=== PATIENT | male | born 1965 | race American Indian/Alaskan Native ===

== ENCOUNTER 2016-10-31 08:23 | Observation (INO) | payer OTHER ==
[2016-10-31 08:36] VITALS: BMI 28.3
--- NOTE | 2016-10-31 08:54 | ED PDOC ---
Arrival/HPI - General Chief Complaint: Chest Pain Time Seen by Provider: 10/31/16 08:41 Historian: Patient - History of Present Illness Narrative History of Present Illness (Text): 10/31/16 08:42 A 50 year old male presents to the emergency department complaining of left sided sharp chest pain that started yesterday. No inside factor. Patient denies any fever, chill, shortness of breath, or any other complaints at this time. PMD: Dr. Mcadams Time/Duration: 24 hours Symptom Onset: Sudden Symptom Course: Unchanged Quality: Other Activities at Onset: Rest Context: Home Past Medical History - Provider Review Nursing Documentation Reviewed: Yes - Past History Past History: No Previous - Infectious Disease Hx of Infectious Diseases: None - Tetanus Immunization Tetanus Immunization: Unknown - Past Medical History Past Medical History: No Previous - Cardiac Hx Cardiac Disorders: No - Pulmonary Hx Respiratory Disorders: No - Neurological Hx Neurological Disorder: No - HEENT Hx HEENT Disorder: No - Renal Hx Renal Disorder: No - Endocrine/Metabolic Hx Endocrine Disorders: No - Hematological/Oncological Hx Blood Disorders: Yes Hx Shingles: Yes - Integumentary Hx Dermatological Disorder: No - Musculoskeletal/Rheumatological Hx Musculoskeletal Disorders: No - Gastrointestinal Hx Gastrointestinal Disorders: No Hx Constipation: Yes - Genitourinary/Gynecological Hx Genitourinary Disorders: No - Psychiatric Hx Psychophysiologic Disorder: Yes Hx Anxiety: Yes Hx Substance Use: No - Past Surgical History Past Surgical History: No Previous - Anesthesia Hx Anesthesia: No Hx Anesthesia Reactions: No Hx Malignant Hyperthermia: No - Suicidal Assessment Feels Threatened In Home Enviroment: No Family/Social History - Physician Review Nursing Documentation Reviewed: Yes Family/Social History: Unknown Family HX Smoking Status: Never Smoked Hx Alcohol Use: Yes Hx Substance Use: No Hx Substance Use Treatment: No Allergies/Home Meds Allergies/Adverse Reactions: Allergies No Known Allergies Allergy (Verified 09/14/15 14:48) Home Medications: Home Meds Medication Instructions Recorded Confirmed Bisacodyl [Ducolax] 2 tab PO DAILY 10/31/16 10/31/16 Review of Systems - Physician Review All systems were reviewed & negative as marked: Yes - Review of Systems Constitutional: absent: Fevers Respiratory: absent: SOB Cardiovascular: Chest Pain Physical Exam Vital Signs Reviewed: Yes Vital Signs Temp Pulse Resp BP Pulse Ox 10/31/16 08:25 98.6 F 58 L 20 145/82 100 Temperature: Afebrile Blood Pressure: Normal Pulse: Bradycardic Respiratory Rate: Normal Appearance: Positive for: Well-Appearing, Non-Toxic, Comfortable Pain Distress: None Mental Status: Positive for: Alert and Oriented X 3 - Systems Exam Head: Present: Atraumatic, Normocephalic Pupils: Present: PERRL Extroacular Muscles: Present: EOMI Conjunctiva: Present: Normal Mouth: Present: Moist Mucous Membranes Neck: Present: Normal Range of Motion Respiratory/Chest: Present: Clear to Auscultation, Good Air Exchange. No: Respiratory Distress, Accessory Muscle Use Cardiovascular: Present: Normal S1, S2, Bradycardic. No: Murmurs Abdomen: Present: Normal Bowel Sounds. No: Tenderness, Distention, Peritoneal Signs Back: Present: Normal Inspection Upper Extremity: Present: Normal Inspection. No: Cyanosis, Edema Lower Extremity: Present: Normal Inspection. No: Edema Neurological: Present: GCS=15, CN II-XII Intact, Speech Normal Skin: Present: Warm, Dry, Normal Color. No: Rashes Psychiatric: Present: Alert, Oriented x 3, Normal Insight, Normal Concentration Medical Decision Making ED Course and Treatment: 10/31/16 08:42 Impression: A 50 year old male with chest pain. Differential Diagnosis include but are not limited to:r/o acs Plan: -- EKG -- Chest X-ray -- Labs -- Urinalysis -- Reassess and disposition Prior Visits: Notes and results from previous visits were reviewed. The patient last presented to the emergency department on 09/14/15 for evaluation of cough and nasal congestion. Progress Notes: EKG: Ordered, reviewed, and independently interpreted the EKG. Rate : 56 BPM Rhythm : Sinus Bradycardia Interpretation : No ST-segment elevations or depressions, no T-wave inversions, normal intervals. 10/31/16 09:50 Chest X-ray: Creator : Colby Tee MD COMPARISON: 05/21/2015 FINDINGS: LUNGS: No active pulmonary disease. PLEURA: No significant pleural effusion identified, no pneumothorax apparent. CARDIOVASCULAR: Normal. OSSEOUS STRUCTURES: No significant abnormalities. VISUALIZED UPPER ABDOMEN: Normal. OTHER FINDINGS: None. IMPRESSION: No active disease. 10/31/16 10:[address] Byrd, who is aware and accepts the patient to his services. r/o acs. I have discussed the results and plan with the patient, who expresses understanding. Patient given the opportunity to ask question, all questions were answered and there is agreement with the plan to be admitted to the hospital. 10/31/16 11:22 - Lab Interpretations Lab Results: 10/31/16 09:15 10/31/16 09:15 Lab Results 10/31/16 09:15: Sodium 138, Potassium 3.7, Chloride 103, Carbon Dioxide 28, Anion Gap 11, BUN 17, Creatinine 1.0, Est GFR ( Amer) > 60, Est GFR (Non- Af Amer) > 60, Random Glucose 88, Calcium 9.6, Magnesium 1.9, Total Bilirubin 1.4 H, AST 32, ALT 20, Alkaline Phosphatase 64, Lactate Dehydrogenase 524, Total Creatine Kinase 292 H, CK-MB (CK-2) 1.4, CK-MB (CK-2) % Cancelled, Troponin I < 0.01, Total Protein 8.0, Albumin 4.1, Globulin 3.9, Albumin/ Globulin Ratio 1.1 10/31/16 09:15: PT 11.9 H, INR 1.10 H, APTT 31.5 H 10/31/16 09:15: WBC 5.4, RBC 5.07, Hgb 15.1, Hct 43.7, MCV 86.2, MCH 29.8, MCHC 34.6, RDW 13.8, Plt Count 163, MPV 10.9, Gran % 39.4 L, Lymph % (Auto) 47.2 H, [place] % (Auto) 7.4 H, Eos % (Auto) 5.6 H, Baso % (Auto) 0.4, Gran # 2.12, Lymph # 2.5, [place] # 0.4, Eos # 0.3, Baso # 0.02 I have reviewed the lab results: Yes - RAD Interpretation Radiology Orders: 10/31/16 08:48 CHEST PORTABLE [RAD] Stat - Medication Orders Current Medication Orders: Discontinued Medications Aspirin (Aspirin) 325 mg PO STAT STA Stop: 10/31/16 09:54 Last Admin: 10/31/16 10:06 Dose: 325 mg - Scribe Statement The provider has reviewed the documentation as recorded by the Sharla Maynard Provider Scribe Attestation: All medical record entries made by the Scribe were at my direction and personally dictated by me. I have reviewed the chart and agree that the record accurately reflects my personal performance of the history, physical exam, medical decision making, and the department course for this patient. I have also personally directed, reviewed, and agree with the discharge instructions and disposition. Disposition/Present on Arrival - Present on Arrival Any Indicators Present on Arrival: No History of DVT/PE: No History of Uncontrolled Diabetes: No Urinary Catheter: No History of Decub. Ulcer: No History Surgical Site Infection Following: None - Disposition Have Diagnosis and Disposition been Completed?: Yes Diagnosis: Chest pain Disposition: HOSPITALIZED Disposition Time: 10:07 Condition: STABLE
[2016-10-31 09:17] LABS: ADD MANUAL DIFF? NO
[2016-10-31 09:31] LABS: BASO # 0.02 K/mm3 (0.0-2.0); BASO % 0.4 % (0.0-3.0); EOS # 0.3 (0.0-0.7); EOS % 5.6 % (1.5-5.0); GRAN # 2.12 (1.4-6.5); GRAN % 39.4 % (50.0-68.0); HEMATOCRIT 43.7 % (42.0-52.0); LYMPH # 2.5 (1.2-3.4); LYMPH % 47.2 % (22.0-35.0); MEAN CELL VOLUME 86.2 fL (80.0-105.0); MEAN CORPUSCULAR HEMOGLOBIN 29.8 pg (25.0-35.0); MEAN CORPUSCULAR HGB CONC 34.6 g/dl (31.0-37.0); MEAN PLATELET VOLUME 10.9 fl (7.0-11.0); MONO # 0.4 (0.1-0.6); MONO % 7.4 % (1.0-6.0); PLATELET COUNT 163 10^3/uL (120.0-450.0); RED CELL DISTRIBUTION WIDTH 13.8 % (11.5-14.5); WHITE BLOOD COUNT 5.4 10^3/ul (4.5-11.0)
[2016-10-31 09:35] LABS: ALB/GLOB RATIO 1.1 (1.1-1.8); ALKALINE PHOSPHATASE 64 U/L (38-133); ALT/SGPT 20 U/L (7-56); AST/SGOT 32 U/L (15-59); BILIRUBIN,TOTAL 1.4 mg/dL (0.2-1.3); BLOOD UREA NITROGEN 17 mg/dL (7-21); CALCIUM 9.6 mg/dL (8.4-10.5); CARBON DIOXIDE 28 mmol/L (21-33); CHLORIDE 103 mmol/L (98-107); GFR AFRICAN-AMERICAN > 60; GLUCOSE,RANDOM 88 mg/dL (70-110); MAGNESIUM 1.9 mg/dL (1.7-2.2); SODIUM 138 mmol/L (132-148)
[2016-10-31 09:37] LABS: POTASSIUM 3.7 mmol/L (3.6-5.0)
[2016-10-31 09:41] LABS: INR 1.1 (0.93-1.08); PARTIAL THROMBOPLASTIN TIME 31.5 Seconds (23.7-30.8)
[2016-10-31 09:47] LABS: TROPONIN I < 0.01 ng/mL
--- NOTE | 2016-10-31 09:50 | RAD ---
HISTORY: cp COMPARISON: 05/21/2015 FINDINGS: LUNGS: No active pulmonary disease. PLEURA: No significant pleural effusion identified, no pneumothorax apparent. CARDIOVASCULAR: Normal. OSSEOUS STRUCTURES: No significant abnormalities. VISUALIZED UPPER ABDOMEN: Normal. OTHER FINDINGS: None. IMPRESSION: No active disease.
[2016-10-31] MEDS ORDERED: Pantoprazole 40 mg EC Tab PO SCH (12:15)
[2016-10-31] MEDS ORDERED: Aspirin 325 mg EC Tablets PO ONE (12:15)
[2016-10-31] MEDS: Enoxaparin 40 mg Syringe SC SCH (13:02)
[2016-10-31] MEDS: Nitroglycerin 2% Ointment Foilpak UD TOP SCH ×4 (13:02→23:56)
[2016-10-31] MEDS ORDERED: Pneumococcal 23-Valent Vaccine IM ONE (13:23)
[2016-10-31 14:25] LABS: CHOLESTEROL 177 mg/dL (130-200)
[2016-10-31 14:39] LABS: TROPONIN I < 0.01 ng/mL
[2016-10-31 14:47] LABS: FREE T4 0.99 ng/dL (0.78-2.19); T4 6.6 ug/dL (5.5-11.0)
[2016-10-31 15:00] LABS: THYROID STIMULATING HORMONE 1.48 mIU/mL (0.46-4.68)
[2016-10-31] MEDS ORDERED: Omega-3-Acid Ethyl Esters 1 GM Cap PO SCH (18:00)
[2016-10-31] MEDS ORDERED: Magnesium Hydroxide Susp 30 ml UD PO ONE (19:42)
[2016-10-31] MEDS ORDERED: Bisacodyl 5mg EC Tab PO ONE (19:43)
[2016-10-31 21:12] LABS: TROPONIN I < 0.01 ng/mL
[2016-11-01] MEDS: Nitroglycerin 2% Ointment Foilpak UD TOP SCH ×2 (05:21→12:26)
[2016-11-01 05:47] VITALS: RESP 18; O2SAT 98
[2016-11-01 07:16] LABS: CARDIO CRP(R) 0.4 mg/L
[2016-11-01] MEDS ORDERED: Sodium Chloride 0.9% 1,000 ML IV SCH (08:45)
[2016-11-01] MEDS ORDERED: Iohexol 240 (50 ml) ONE (08:58)
[2016-11-01] MEDS ORDERED: Iohexol 350 MG/100 ML VIAL ONE (08:59)
[2016-11-01 09:06] LABS: PH,URINE 6.5 (4.7-8.0); URINE BILIRUBIN NEGATIVE (NEGATIVE); URINE BLOOD TRACE-INTACT (NEGATIVE); URINE GLUCOSE (UA) NEGATIVE (NEGATIVE); URINE KETONE NEGATIVE (NEGATIVE); URINE LEUKOCYTE ESTERASE NEGATIVE Leu/uL (NEGATIVE); URINE PROTEIN NEGATIVE mg/dL (<30 mg/dL); URINE UROBILINOGEN 0.2 E.U./dL (<1 E.U./dL)
[2016-11-01 09:14] LABS: URINE APPEARANCE CLEAR (CLEAR); URINE COLOR YELLOW (YELLOW)
[2016-11-01 09:23] LABS: URINE BACTERIA FEW (NEG); URINE EPITHELIAL CELLS 0 - 2 /hpf (0-5); URINE RBC 0 - 2 /hpf (0-2); URINE WBC 0 - 2 /hpf (0-6)
--- NOTE | 2016-11-01 09:34 | HP ---
HISTORY OF PRESENT ILLNESS: The patient is a 50-year-old -[place] male who came to the [facility] ency Room complaining of retrosternal pain, pressure, tightness. Now radiating to the entire chest. The patient also complained of constipation and worsening of the symptoms upon lying down. REVIEW OF SYSTEMS: A 13-system review was done. Pertinent positives and negatives dictated above. The patient also complained of retrosternal and left-sided chest pain, pressure and burning in the est. Thirteen-system review was done. Pertinent positive and negative dictated above. CODE STATUS: Full code. LIVING WILL ADVANCED DIRECTIVE: None. Height is 6 feet. Weight is 209. ALLERGIES: None. HOME MEDICATIONS: Dulcolax tablets. SOCIAL HISTORY: The patient denies smoking, denies drug use, denies communicable transmissible disea se. Social alcohol use. 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 FAMILY HISTORY: Positive for hypertension. PAST MEDICAL HISTORY: Significant for hypertension and shingles. MEDICATIONS: On no medications. PHYSICAL EXAMINATION: VITAL SIGNS: T-max 98.6, heart rate 58, 72, 58, 61. Blood pressure initially 145/82, 148/90, 145/82 , respirations 20, O2 sat was 100%. GENERAL: The patient is seen lying in the stretcher. HEAD: Normocephalic, atraumatic. HEENT: Shows pink conjunctivae. Anicteric sclerae. Dry oral mucosa. NECK: No neck rigidity. No carotid bruit. CHEST: Symmetrical. LUNGS: Shows no rales, crackles, or wheezing. Questionable sternal and rib cage tenderness noted. Positive epigastric tenderness noted. Positive right upper quadrant tenderness noted. CARDIOVASCULAR: S1, S2, regular rhythm. ABDOMEN: Soft, positive bowel sounds. Positive epigastric right upper quadrant tenderness, No cost overtebral angle tenderness noted. No hepatosplenomegaly noted. GENITALIA: Male. RECTAL: Deferred. EXTREMITIES: Shows no pitting edema, no calf tenderness, no Homans' sign. NEUROLOGIC: The patient is alert, awake, oriented x 3. Cranial nerves II-XII intact. VASCULAR: Palpable pulses. PSYCHIATRIC: Negative. MUSCULOSKELETAL: Shows a body mass index of 28.3. DIAGNOSTICS: WBC 5.4, hemoglobin and hematocrit 15.1 and 43.7, platelets 163, lymphocytes are slight ly elevated at 47.2. PT, PTT 11.9, 31.5. D-dimer 0.19. Sodium 138, potassium 3.7, chloride 103, CO 2 28, anion gap 11, BUN 17, creatinine 1.0, GFR greater than 60, glucose 88, calcium 9.6, magnesium 1 .9, total bilirubin 1.4. CPK 292. Troponin is negative. C-reactive protein is 0.4. Cholesterol 17 7, LDL 116, triglyceride 110, HDL 46. TSH 1.4, T4 6.6. Urinalysis is pending. Chest x-ray was done in the Emergency Room which was negative for any active disease. The patient's EKG done in the [facility] Room was reviewed, shows sinus bradycardia with left ventricular hypertrophy pattern by voltage criteria. The patient was seen in the Emergency Room by ____. The patient was evaluated in the Emergency R oom. The patient was given aspirin. The patient was advised to be placed on observation as per the ER physician. IMPRESSION AND PLAN: 1. Chest pain and tightness and pressure, etiology undetermined. 2. History of hypertension. 3. Sinus bradycardia. 4. Hypertensive cardiovascular disease with left ventricular hypertrophy on the EKG. 5. Mild lymphocytosis, etiology undetermined. 6. Mildly elevated CPK. 7. Hypercholesterolemia with elevated LDL. 8. Family history of hypertension. PLAN: At this time, the patient is placed on telemetry observation. Serial cardiac enzymes have bee n ordered. Serial EKGs ordered. Cardiology consultation ordered. The patient was given aspirin. T he patient is started on aspirin 325 daily, Lipitor 40 daily, Lovenox 40 mg subQ daily, MiraLax 17 g twice a day for constipation, Nitro paste 1 inch q. 6 hours, Protonix 40 mg twice a day. The patient has been ordered repeat EKGs. Echo with Doppler ordered. Heart healthy diet ordered. Urinalysis o rdered. CRP ordered. At present, patient is awaiting for further diagnostic therapeutic interventio n and imaging and the patient is awaiting for cardiology evaluation for further therapeutic intervent ion. The patient was explained about the details of his medical condition, need for hospitalization, need for further diagnostic and therapeutic intervention, which he acknowledged and understood. All questions and concerns answered. Dictated and electronically signed, not read. Fantasma Byrd MD cc: [id number] TT: 11/01/2016 09:33:46 jn
[2016-11-01] MEDS: Pantoprazole 40 mg EC Tab PO SCH ×2 (09:52→16:56)
[2016-11-01] MEDS: POLYETHYLENE GLYCOL 3350 17 GM/Dose PACKET PO SCH ×2 (09:53→16:56)
[2016-11-01] MEDS: Enoxaparin 40 mg Syringe SC SCH (09:53)
[2016-11-01] MEDS ORDERED: Aspirin 325 mg EC Tablets PO SCH (10:00)
[2016-11-01 12:31] VITALS: BP 141/95; TEMP 97.5
--- NOTE | 2016-11-01 13:05 | CT ---
PROCEDURE: CT Abdomen and Pelvis with oral and IV contrast. HISTORY: CP/ABD.PAIN/ COMPARISON: CT abdomen and pelvis with IV contrast performed 06/24/15 TECHNIQUE: Contiguous axial images of the abdomen and pelvis. Oral and IV contrast was administered. Coronal and Sagittal reformats generated and reviewed. Contrast dose: 100 cc Omnipaque 350 Radiation dose: Total exam DLP = 1085.08 MGy-cm. This CT exam was performed using one or more of the following dose reduction techniques: Automated exposure control, adjustment of the mA and/or kV according to patient size, and/or use of iterative reconstruction technique. FINDINGS: Chest: The thyroid gland appears unremarkable. The mediastinal and hilar vascular structures appear grossly unremarkable. Heart size appears within normal limits. No focal consolidation. No pleural effusion. No pneumothorax. No suspicious pulmonary nodule measuring greater than 5 mm identified. Small hiatal hernia. LIVER: Hypoattenuation of the liver compatible with hepatic steatosis. GALLBLADDER AND BILE DUCTS: Unremarkable. PANCREAS: Unremarkable. SPLEEN: Unremarkable. ADRENALS: Unremarkable. KIDNEYS AND URETERS: The kidneys enhance symmetrically. 3 mm right renal calculus. Mild fullness of the right renal pelvis and proximal ureter without obstructing calculus evident. 4 mm too small to characterize right renal hypodensity, statistically likely a cyst. The left kidney appears unremarkable. BLADDER: The urinary bladder appears unremarkable. REPRODUCTIVE: The prostate gland measures approximately 5.8 x 6.2 cm. APPENDIX: The appendix is not identified. No secondary signs of acute appendicitis are seen. BOWEL: The stomach is nondistended. The bowel loops appear within normal limits of caliber without evidence of intestinal obstruction. PERITONEUM: No significant free fluid. No definite free air. LYMPH NODES: No bulky lymphadenopathy identified. VASCULATURE: No aortic aneurysm. BONES: Degenerative changes. Osseous demineralization. 5 mm sclerotic lesion, left ilium. OTHER FINDINGS: Mild subcutaneous induration, right lateral upper abdomen. IMPRESSION: Mild subcutaneous induration, right lateral upper abdomen, nonspecific. Hypoattenuation of the liver compatible with hepatic steatosis. Too small to characterize right renal hypodensity ; statistically likely a cyst. 3 mm right renal calculus. Mild fullness of the right renal pelvis and proximal ureter without obstructing calculus evident. Enlarged heterogeneous prostate gland. Recommend correlation with PSA. Additional incidental findings as above.
--- NOTE | 2016-11-01 15:53 | CARD ---
APPROVED REPORT EKG Measurement Heart [id number] MD [id number] <Conclusion> Normal sinus rhythm Normal ECG
--- NOTE | 2016-11-01 16:12 | CARD ---
APPROVED REPORT EKG Measurement Heart [id number] <Conclusion> Sinus bradycardia Otherwise normal ECG
[2016-11-01 16:16] VITALS: PULSE 67
--- NOTE | 2016-11-01 19:16 | CON ---
DATE: 11/01/2016 REASON FOR CONSULTATION: Chest pain. HISTORY OF PRESENT ILLNESS: The patient is a 50-year-old -[place] male who has no significan t past medical history except for undergoing colonoscopy and polypectomy some 2 years ago at [facility]. 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 Doing his job, he started to experienc e retrosternal chest tightness associated with weakness. The patient denies any associated diaphores is or shortness of breath and is unaware of any prior cardiac history. The only significant family h yajaira is his mom in her 60s where she did have coronary artery disease. The patient is currently ch est pain free and denies any shortness of breath at this time. SOCIAL HISTORY: Nonsmoker, nondrinker. 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 MEDICATIONS: Aspirin 325 mg once a day, Lipitor 40 mg once a day, Lovenox 40 mg subcutaneous once a day, Protonix 40 mg p.o. twice a day, normal saline 100 mL an hour. REVIEW OF SYSTEMS: No nausea or vomiting. No fever or chills. No dizziness or syncope. PHYSICAL EXAMINATION: GENERAL: The patient is a middle-aged male who does not appear to be in any distress. VITAL SIGNS: Blood pressure 141/95, heart rate 62, temperature 97.5, respirations 18. HEENT: Normocephalic. NECK: No JVD. CHEST: Clear. HEART: S1, S2 regular. ABDOMEN: Soft. EXTREMITIES: No edema, no calf tenderness. LABORATORY DATA: CBC of 5.4, hemoglobin 15.1, hematocrit 43.7, platelet count 163,000. SMA-7: [place] um 138, potassium 3.7, chloride 103, CO2 of , glucose 88, BUN 17, creatinine 1.0. Three sets of troponins are negative. Lipid profile is within normal limits. TSH level is 1.43. INR is 1.1, PTT 31.5. The INR is within normal limits. EKG revealed normal sinus rhythm. ASSESSMENT: 1. Chest pain, myocardial infarction is ruled out. 2. Hypertension. 3. History of colonic polyps removed 2 years ago. RECOMMENDATIONS: Continue aspirin 325 mg once a day, Lipitor at 40 mg once a day, Lovenox at 40 mg o nce a day. Start Lopressor 25 mg twice a day. I will review the echocardiographic study performed t priscilla. Jose Presley MD cc: [id number] TT: 11/01/2016 19:16:06 Confirmation # [id number] Dictation # [id number] mn
--- NOTE | 2016-11-01 19:48 | DS ---
The patient is seen in room 269, bed 2. The patient stated that his complaints of chest pain, pressu re has lessened, but patient has been refusing the nitro paste which has been ordered. Overnight gopal 's notes were reviewed. The patient had complained of constipation for which patient was given Dul colax and milk of magnesia with positive results. PHYSICAL EXAMINATION: VITAL SIGNS: T-max 98.3. Telemetry shows sinus rhythm, heart rate 62, 73, 78. Blood pressure 104/5 1 110/69, 141/95, 145/82, 148/90, 45/82, yesterday, respiration 18, O2 sat 98%. HEAD: Normocephalic, atraumatic. HEENT: Shows pink conjunctivae, anicteric sclerae. No oropharyngeal lesion. NECK: No neck rigidity. CHEST: Symmetrical. LUNGS: Shows no rales, crackles, or wheezing. CARDIOVASCULAR: S1, S2, regular rhythm. ABDOMEN: Soft. Mild epigastric, right upper quadrant tenderness. GENITALIA: Male. RECTAL: Deferred. EXTREMITIES: Shows no pitting edema, no calf tenderness, no Homans' sign. NEUROLOGIC: The patient is alert, awake, oriented x 3. Cranial nerves II-XII intact. GAIT: Independent. VASCULAR: Palpable pulses. Plantars are downward. DTRs are 2+. MUSCULOSKELETAL: Shows a body mass index of 28. VASCULAR: Palpable pulses. DIAGNOSTICS: ESR is 6. Troponin all 3 sets are negative. CPK is down to 229 from 292. C-reactive protein is negative. Thyroid panel was negative. Cholesterol is elevated at 177, LDL 116. The sangita ent was ordered a CT of the chest, abdomen and pelvis for his complaints of chest pain and abdominal pain and constipation, with IV and p.o. contrast, which CAT scan of the chest, abdomen and pelvis adria ws small hiatal hernia, hepatic steatosis, 3 mm right renal calculus with fullness of the right renal pelvis and proximal ureter without obstructing calculus, and right renal cyst. Degenerative joint d isease of the spine noted. Hepatic steatosis noted, right renal cyst noted, prostatomegaly noted on the CAT scan. Echocardiogram was done, report pending. EKG shows sinus rhythm, sinus bradycardia. From today and yesterday, both EKGs were reviewed. All 3 sets of cardiac enzymes and troponin negative. FINAL IMPRESSION, PLAN, AND DISCHARGE DIAGNOSES: 1. Chest pain, tightness and pressure, atypical versus musculoskeletal. 2. Most likely gastroesophageal reflux. 3. Hypertension. 4. Sinus bradycardia. 5. Hypertensive cardiovascular disease with left ventricular hypertrophy. 6. Mild lymphocytosis, etiology undetermined. 7. Hypercholesterolemia with elevated LDL. 8. Mildly elevated CPK. 9. History of shingles. 10. Hypercholesterolemia and elevated LDL. 11. Sinus bradycardia. 12. Small hiatal hernia. 13. Hepatic steatosis with hypoattenuation of the liver. 14. A 3 mm right renal nonobstructing calculus with mild fullness of the right renal pelvis and prox imal ureter. 15. Right renal cyst. 16. Prostatomegaly. 17. Degenerative joint disease. 18. Prostatomegaly. PLAN: At this time, patient has been ordered a PSA, which is pending. Echo was done, but the result s are pending. The patient's current medications, the patient is on aspirin 325 daily, Lipitor 40 da marty. The patient is started on Lovenox 40 subQ daily, MiraLax 17 g twice a day, nitro paste 1 inch q .6, Protonix 40 twice a day, IV fluid 0.9 at 100 mL an hour. The patient at present has been medical ly cleared. The patient will be cleared for discharge if patient is cleared by cardiology for discha rge. The patient has been explained about the details of his medical condition. If patient is clear ed for discharge by cardiology, the patient will be discharged on aspirin 81 mg p.o. daily, Lipitor 40 mg daily. The patient is started on Edarbi 40 mg daily, Dulcolax tablet 5 mg tablet daily for con stipation, Protonix 40 mg twice a day, MiraLax 17 g twice a day. In addition, the patient will be di scharged home if cleared by cardiology. The patient has also been advised to schedule outpatient str ess test. Also, follow up patient with gastroenterology for EGD and colonoscopy if stress test negat perla. The patient was explained about all the details and all test results and all diagnostics at [facility], which he acknowledged and understands. The patient was extensively explained about the details of his condition, diagnosis, test results, etc. The patient was also advised to follow up in the off ice within 1 week for scheduling further appointments with cardiology for further cardiology evaluati on, stress testing and GI evaluation after patient cleared by cardiology. The patient completely und erstands and acknowledges his situation, diagnosis, test results. Discharge medications and discharge followup extensively explained to the patient at length and all q uestions and concerns answered. Time spent in the entire discharge process more than 45 minutes. Fantasma Byrd MD cc: [id number] TT: 11/01/2016 19:47:55 ln
--- NOTE | 2016-11-03 22:47 | CARD ---
APPROVED REPORT EXAM: Two-dimensional and M-mode echocardiogram with Doppler and color Doppler. INDICATION Hypertension/HCVD Chest Pain 2D DIMENSIONS Left Atrium (2D)3.4 (1.6-4.0cm)IVSd1.5 (0.7-1.1cm) Aortic Root (2D)3.9 (2.0-3.7cm)LVDd4.1 (3.9-5.9cm) PWd1.2 (0.7-1.1cm)LVDs2.2 (2.5-4.0cm) FS (%) 46.8 %LVEF (%)78.7 (>50%) M-Mode DIMENSIONS Aortic Cusp Exc.2.60 (1.5-2.0cm) Aortic Valve AoV Peak Rtwzviad580.0cm/Latanya Peak GR.5mmHg Mitral Valve MV E Abmiblxy48.2cm/sMV A Vihaebpn50.0cm/sE/A ratio1.2 TDI Lateral E' Peak V9.16cm/sMedial E' Peak V8.38cm/sE/Lateral E'8.8 E/Medial E'9.6 Pulmonary Valve PV Peak Ophhwulw96.3cm/sPV Peak Grad.2mmHg Tricuspid Valve TR Peak Zdxehyew567qn/sRAP [id number] Peak Gr.12mmHg [id number] LEFT VENTRICLE The left ventricle is normal size. There is mild concentric left ventricular hypertrophy. The left ventricular function is normal. The left ventricular ejection fraction is within the normal range. There is normal LV segmental wall motion. The left ventricular diastolic function is normal. RIGHT VENTRICLE The right ventricle is normal size. There is normal right ventricular wall thickness. The right ventricular systolic function is normal. ATRIA The left atrium size is normal. The right atrium size is normal. AORTIC VALVE The aortic valve is normal in structure. No aortic regurgitation is present. There is no aortic valvular stenosis. MITRAL VALVE The mitral valve is normal in structure. There is no mitral valve regurgitation noted. TRICUSPID VALVE The tricuspid valve is normal in structure. There is no pulmonary hypertension. PULMONIC VALVE The pulmonary valve is normal in structure. There is no pulmonic valvular regurgitation. GREAT VESSELS The aortic root is mildly enlarged. The IVC is normal in size and collapses >50% with inspiration. PERICARDIAL EFFUSION There is no pericardial effusion. <Conclusion> The left ventricle is normal size. There is mild concentric left ventricular hypertrophy. The left ventricular function is normal. The left ventricular ejection fraction is within the normal range. There is normal LV segmental wall motion. The left ventricular diastolic function is normal. The aortic root is mildly enlarged.
== END 2016-11-01 18:16 | disposition home or self-care (01) ==
LOC: ED 08:23 → ERH 10:06 → 2RNO 12:30
PROVIDERS: ADMIT Internal Medicine; ATTEND Internal Medicine
DX: D72.820 Lymphocytosis (symptomatic) (principal); E78.00 Pure hypercholesterolemia, unspecified; I11.9 Hypertensive heart disease without heart failure; K59.00 Constipation, unspecified; I25.10 Atherosclerotic heart disease of native coronary artery without angina pectoris; K21.9 Gastro-esophageal reflux disease without esophagitis; K44.9 Diaphragmatic hernia without obstruction or gangrene; K76.0 Fatty (change of) liver, not elsewhere classified; M19.90 Unspecified osteoarthritis, unspecified site; N28.1 Cyst of kidney, acquired; N40.0 Benign prostatic hyperplasia without lower urinary tract symptoms; Z82.49 Family history of ischemic heart disease and other diseases of the circulatory system; Z86.010 Personal history of colon polyps; Z86.19 Personal history of other infectious and parasitic diseases; F41.9 Anxiety disorder, unspecified; R00.1 Bradycardia, unspecified; R40.2412 Glasgow coma scale score 13-15, at arrival to emergency department
CPT/HCPCS: 71010; 71260; 74177; 80053; 80061; 81001; 82550; 82553; 83615; 83735; 84439; 84443; 84484; 85025; 85378; 85610; 85651; 85730; 86141; 93005; 93306; 96372; 99285; G0378; J1650; J7040; Q9966; Q9967

== ENCOUNTER 2017-02-16 09:10 | Emergency (ER) | payer OTHER ==
[2017-02-16 09:22] VITALS: RESP 18; TEMP 98.3; BMI 31.1
[2017-02-16] MEDS ORDERED: Sodium Chloride 0.9% 1,000 ML IV STA (09:40)
[2017-02-16 10:05] LABS: BASO # 0.01 K/mm3 (0.0-2.0); BASO % 0.2 % (0.0-3.0); EOS # 0.2 (0.0-0.7); EOS % 4.1 % (1.5-5.0); GRAN # 2.19 (1.4-6.5); GRAN % 38.8 % (50.0-68.0); LYMPH # 2.8 (1.2-3.4); LYMPH % 49.5 % (22.0-35.0); MEAN CELL VOLUME 84.6 fl (80.0-105.0); MEAN CORPUSCULAR HEMOGLOBIN 29.5 pg (25.0-35.0); MEAN CORPUSCULAR HGB CONC 34.9 g/dl (31.0-37.0); MEAN PLATELET VOLUME 9.6 fl (7.0-11.0); MONO # 0.4 (0.1-0.6); MONO % 7.4 % (1.0-6.0); RED CELL DISTRIBUTION WIDTH 13.6 % (11.5-14.5); WHITE BLOOD COUNT 5.6 10^3/ul (4.5-11.0)
--- NOTE | 2017-02-16 10:16 | ED PDOC ---
Arrival/HPI - General Historian: Patient - History of Present Illness Time/Duration: Other (3 days) Quality: Burning, Throbbing Severity Level: Severe - General Chief Complaint: GI Problem Time Seen by Provider: 02/16/17 09:20 - History of Present Illness Narrative History of Present Illness (Text): 02/16/17 10:13 51-year-old male presents today with severe rectal pain that is worsened over the past 3 days. Patient states had a colonoscopy over a year ago and ever since then he has been having constipation. Patient states he's been using Dulcolax with minimal relief of his constipation. Patient states his last bowel movement was today. Patient states the stool was hard. He denies bleeding. Patient complaining of burning and sharp throbbing pain to the rectum and anus that has worsened over the past 3 days. He is complaining of minimal lower abdominal pain. He denies chest pain or shortness of breath. No medications by mouth have been taken for pain at home. Patient states he applied Preparation H without improvement of his symptoms. (Chanda Wilson) Past Medical History - Provider Review Nursing Documentation Reviewed: Yes - Travel History Have you recently traveled outside [place] w/in the past 3 mons?: No - Past History Past History: No Previous - Infectious Disease Hx of Infectious Diseases: None - Tetanus Immunization Tetanus Immunization: Unknown - Reproductive Currently : No - Past Medical History Past Medical History: No Previous - Cardiac Hx Cardiac Disorders: No - Pulmonary Hx Respiratory Disorders: No - Neurological Hx Neurological Disorder: No - HEENT Hx HEENT Disorder: Yes (glasses) - Renal Hx Renal Disorder: No - Endocrine/Metabolic Hx Endocrine Disorders: No - Hematological/Oncological Hx Blood Disorders: Yes Hx Shingles: Yes (left back "few yrs ago") - Integumentary Hx Dermatological Disorder: No - Musculoskeletal/Rheumatological Hx Falls: No - Gastrointestinal Hx Gastrointestinal Disorders: Yes (constipation take dulcolax) - Genitourinary/Gynecological Hx Genitourinary Disorders: No - Psychiatric Hx Psychophysiologic Disorder: Yes Hx Anxiety: Yes Hx Substance Use: No - Past Surgical History Past Surgical History: No Previous - Anesthesia Hx Anesthesia: No Hx Anesthesia Reactions: No Hx Malignant Hyperthermia: No - Suicidal Assessment Feels Threatened In Home Enviroment: No Family/Social History - Physician Review Nursing Documentation Reviewed: Yes Family/Social History: Unknown Family HX Smoking Status: Never Smoked Hx Alcohol Use: No (rarely) Hx Substance Use: No Hx Substance Use Treatment: No Allergies/Home Meds Allergies/Adverse Reactions: Allergies No Known Allergies Allergy (Verified 09/14/15 14:48) Home Medications: Home Meds Medication Instructions Recorded Confirmed Bisacodyl [Ducolax] 2 tab PO DAILY 10/31/16 02/16/17 Review of Systems - Review of Systems Constitutional: absent: Fatigue, Fevers Respiratory: absent: SOB, Cough Cardiovascular: absent: Chest Pain, Palpitations Gastrointestinal: Abdominal Pain, Constipation, Other (rectal pain). absent: Diarrhea, Nausea, Vomiting, Appetite Changes, Hematochezia, Hematemesis Genitourinary Male: absent: Dysuria, Frequency, Hematuria Musculoskeletal: absent: Arthralgias, Back Pain, Neck Pain Neurological: absent: Headache, Dizziness Physical Exam Vital Signs Reviewed: Yes Temperature: Afebrile Blood Pressure: Hypertensive Pulse: Regular Respiratory Rate: Normal Appearance: Positive for: Well-Appearing, Non-Toxic, Comfortable Pain Distress: None Mental Status: Positive for: Alert and Oriented X 3 - Systems Exam Head: Present: Atraumatic Mouth: Present: Moist Mucous Membranes Neck: Present: Normal Range of Motion Respiratory/Chest: Present: Clear to Auscultation, Good Air Exchange. No: Respiratory Distress, Accessory Muscle Use Cardiovascular: Present: Regular Rate and Rhythm, Normal S1, S2. No: Murmurs Abdomen: Present: Normal Bowel Sounds. No: Tenderness, Distention, Peritoneal Signs, Rebound, Guarding Rectal: Present: Occult Blood, Rectal Tenderness, Normal Rectal Tone, Other ( chaparoned by brook johnston RN). No: Gross Blood, Melena, Hemorrhoids, Nodule/Mass/ Lesions Back: Present: Normal Inspection Upper Extremity: Present: Normal ROM Lower Extremity: Present: Normal ROM Neurological: Present: GCS=15, Speech Normal Skin: Present: Warm, Dry Psychiatric: Present: Alert, Oriented x 3 Vital Signs Temp Pulse Resp BP Pulse Ox 02/16/17 11:40 62 18 116/75 100 02/16/17 09:21 98.3 F 70 18 144/95 H 96 Medical Decision Making ED Course and Treatment: I was available for consultation during PA evaluation. The chart was reviewed by me, and I agree with disposition. The documented history was done by the physician lithographic proofer apprentice. The documented physical exam was done by the physician lithographic proofer apprentice. The documented procedures were done by the physician lithographic proofer apprentice. (Timothy Michel) 02/16/17 10:16 51yr old male with 3 day history of severe worsening rectal pain. severe tenderness on rectal examination without obvious hemorrhoid; due to concern for perirectal abscess; will do ct. pt given toradol for pain cbc wnl cmp wnl lipase wnl UA: + blood ct abd/pelvis; FINDINGS: LOWER THORAX: Unremarkable. LIVER: Normalizing hepatic parenchyma with only limited residual hepatic steatosis remaining at this time. GALLBLADDER AND BILE DUCTS: Unremarkable. PANCREAS: Unremarkable. No gross lesion or ductal dilatation. SPLEEN: Unremarkable. ADRENALS: Unremarkable. No mass. KIDNEYS AND URETERS: Solitary lucent foci are again seen at both kidneys which are remain too small to characterize. 2 punctate intrarenal calculi are stable at the right kidney with no obstructive uropathy intra identified bilaterally. A punctate intrarenal calculus is questioned at the upper midpole left kidney in the interval. No perinephric reaction bilaterally. VASCULATURE: Unremarkable. No aortic aneurysm. BOWEL: Unremarkable. No obstruction. No gross mural thickening. The rectum is collapsed and poorly evaluated. Overall bowel stomach and bowel evaluation is compromised by lack of oral contrast administered in this exam. APPENDIX: Normal appendix. PERITONEUM: Unremarkable. No free fluid. No free air. LYMPH NODES: Unremarkable. No enlarged lymph nodes. BLADDER: Unremarkable. REPRODUCTIVE: Prominent prostate gland enlargement is seen measuring up to 6.5 cm. BONES: No acute fracture. OTHER FINDINGS: Note is made of resolution of prior right lateral subcutaneous induration at abdominal wall. IMPRESSION: 1. No bowel obstruction, mesenteric edema, ascites or free intrarenal gas is grossly evident. Lack of oral contrast limits evaluation of the large bowel with the rectum collapsed and poorly evaluated. No perirectal reaction grossly evident. 2. Punctate intrarenal calculi are again seen the right kidney and posterior the upper midpole left kidney in the interval. Bilateral renal lucencies are seen which is too small to characterize. No obstructive uropathy bilaterally. 3. Minimal diffuse fatty infiltration liver is appreciated suggesting normalizing hepatic parenchyma in the interval. 02/16/17 13:38 pt feeling better after medications; vitals stable. no distress. Discussed all results in depth with the patient advised follow-up with the urologist and the GI doctor within the next 2 days. Advised to return if symptoms worsen or persist or if new concerning symptoms develop Patient verbalizes understanding of discharge instructions and need for immediate followup. Impression: Rectal pain, constipation, enlarged prostate motrin every 6 hours as needed for pain Follow up with the GI doctor within the next 2 days follow up with the primary care physician within the next 2 days. Follow up with urologist for your enlarged prostate return immediately if symptoms worsen,persist or if new symptoms develop. (Chanda Wilson) - Lab Interpretations Lab Results: 02/16/17 09:50 02/16/17 09:50 Lab Results 02/16/17 11:55: Urine Color Yellow, Urine Appearance Clear, Urine pH 6.0, Ur Specific [place] <= 1.005, Urine Protein Negative, Urine Glucose (UA) Negative, Urine Ketones Negative, Urine Blood Trace-lysed H, Urine Nitrate Negative, Urine Bilirubin Negative, Urine Urobilinogen 0.2, Ur Leukocyte Esterase Negative , Urine RBC 0 - 2, Urine WBC Negative 02/16/17 09:50: WBC 5.6, RBC 5.08, Hgb 15.0, Hct 43.0, MCV 84.6, MCH 29.5, MCHC 34.9, RDW 13.6, Plt Count 165, MPV 9.6, Gran % 38.8 L, Lymph % (Auto) 49.5 H, Harper % (Auto) 7.4 H, Eos % (Auto) 4.1, Baso % (Auto) 0.2, Gran # 2.19, Lymph # 2.8, Harper # 0.4, Eos # 0.2, Baso # 0.01 02/16/17 09:50: Sodium 140, Potassium 4.6, Chloride 104, Carbon Dioxide 27, Anion Gap 14, BUN 18, Creatinine 1.1, Est GFR ( Amer) > 60, Est GFR (Non- Af Amer) > 60, Random Glucose 102, Calcium 9.4, Total Bilirubin 1.0, AST 21, ALT 23, Alkaline Phosphatase 66, Total Protein 7.1, Albumin 4.2, Globulin 3.0, Albumin/Globulin Ratio 1.4, Lipase 73 - RAD Interpretation Radiology Orders: 02/16/17 09:40 ABD & PELVIS IV CONTRAST ONLY [CT] Stat - Medication Orders Current Medication Orders: Discontinued Medications Sodium Chloride (Sodium Chloride 0.9%) 1,000 mls @ 999 mls/hr IV .Q1H1M STA Stop: 02/16/17 10:40 Last Admin: 02/16/17 09:58 Dose: 999 mls/hr eMAR Start Stop Document 02/16/17 09:58 EQ (Rec: 02/16/17 09:58 EQ [id number]) Intravenous Solution Start Date 02/16/17 Start Time 09:58 Ketorolac Tromethamine (Toradol) 30 mg IVP STAT STA Stop: 02/16/17 09:41 Last Admin: 02/16/17 09:58 Dose: 30 mg MAR Pain Assessment Document 02/16/17 09:58 EQ (Rec: 02/16/17 09:58 EQ [facility] [id number]) Pain Reassessment Is this a pain reassessment? No Sleep Is patient sleeping during reassessment? No Presence of Pain Presence of Pain Yes Pain Scale Used Pain Scale Used Numeric IVP Administration Document 02/16/17 09:58 EQ (Rec: 02/16/17 09:58 EQ [facility] [id number]) Charges for Administration # of IVP Administrations 1 Disposition/Present on Arrival - Present on Arrival Any Indicators Present on Arrival: No History of DVT/PE: No History of Uncontrolled Diabetes: No Urinary Catheter: No History of Decub. Ulcer: No History Surgical Site Infection Following: None - Disposition Have Diagnosis and Disposition been Completed?: Yes Disposition Time: 13:27 Patient Plan: Discharge - Disposition Diagnosis: Rectal pain, Constipation, Enlarged prostate Disposition: HOME/ ROUTINE Patient Problems: Current Active Problems Problem Status Onset Constipation Acute Enlarged prostate Acute Rectal pain Acute Condition: GOOD Discharge Instructions (ExitCare): Constipation (ED), Acute Abdominal Pain (ED) , Rectal Pain (ED) Additional Instructions: motrin every 6 hours as needed for pain Follow up with the GI doctor within the next 2 days follow up with the primary care physician within the next 2 days. Follow up with urologist for your enlarged prostate return immediately if symptoms worsen,persist or if new symptoms develop. Prescriptions: Ibuprofen [Motrin] 600 mg PO Q6H PRN #20 tab PRN Reason: pain/fever reduction Referrals: Marcelino Graff MD [Staff Provider] - Follow up with primary Lizbeth Mcadams MD [Primary Care Provider] - Follow up with primary Raimundo Ayala MD [Staff Provider] - Follow up with primary Forms: [employer] ([place]er), WORK NOTE
[2017-02-16 10:19] LABS: ALB/GLOB RATIO 1.4 (1.1-1.8); ALKALINE PHOSPHATASE 66 U/L (38-126); ALT/SGPT 23 U/L (7-56); AST/SGOT 21 U/L (17-59); BLOOD UREA NITROGEN 18 mg/dL (7-21); CALCIUM 9.4 mg/dL (8.4-10.5); CARBON DIOXIDE 27 mmol/L (21-33); CHLORIDE 104 mmol/L (98-107); GFR AFRICAN-AMERICAN > 60; GLUCOSE,RANDOM 102 mg/dL (70-110); POTASSIUM 4.6 mmol/L (3.6-5.0); SODIUM 140 mmol/L (132-148); TOTAL PROTEIN 7.1 g/dL (5.8-8.3)
[2017-02-16 10:32] LABS: LIPASE 73 U/L (23-300)
[2017-02-16 11:41] VITALS: O2SAT 100
[2017-02-16 12:06] LABS: URINE BILIRUBIN NEGATIVE (NEGATIVE); URINE BLOOD TRACE-LYSED (NEGATIVE); URINE GLUCOSE (UA) NEGATIVE (NEGATIVE); URINE KETONE NEGATIVE (NEGATIVE); URINE LEUKOCYTE ESTERASE NEGATIVE Leu/uL (NEGATIVE); URINE PROTEIN NEGATIVE mg/dL (<30 mg/dL); URINE UROBILINOGEN 0.2 E.U./dL (<1 E.U./dL)
[2017-02-16 12:09] LABS: URINE APPEARANCE CLEAR (CLEAR); URINE COLOR YELLOW (YELLOW)
[2017-02-16 12:23] LABS: URINE RBC 0 - 2 /hpf (0-2); URINE WBC NEGATIVE /hpf (0-6)
--- NOTE | 2017-02-16 13:15 | CT ---
PROCEDURE: CT Abdomen and Pelvis with contrast HISTORY: rectal pain/abdominal pain/constipation COMPARISON: Abdomen and pelvis CT with contrast 11/01/2016. TECHNIQUE: Following the intravenous administration of iodinated contrast material, a CT examination of the abdomen and pelvis performed from the domes of the diaphragms to the symphysis pubis with reformatted datasets provided not only axial but also sagittal and coronal planes. Oral contrast was not administered as per referring physician request. Contrast dose: Omnipaque 350, 150 cc Radiation dose: Total exam DLP = 1488.45 MGy-cm. This CT exam was performed using one or more of the following dose reduction techniques: Automated exposure control, adjustment of the mA and/or kV according to patient size, and/or use of iterative reconstruction technique. FINDINGS: LOWER THORAX: Unremarkable. LIVER: Normalizing hepatic parenchyma with only limited residual hepatic steatosis remaining at this time. GALLBLADDER AND BILE DUCTS: Unremarkable. PANCREAS: Unremarkable. No gross lesion or ductal dilatation. SPLEEN: Unremarkable. ADRENALS: Unremarkable. No mass. KIDNEYS AND URETERS: Solitary lucent foci are again seen at both kidneys which are remain too small to characterize. 2 punctate intrarenal calculi are stable at the right kidney with no obstructive uropathy intra identified bilaterally. A punctate intrarenal calculus is questioned at the upper midpole left kidney in the interval. No perinephric reaction bilaterally. VASCULATURE: Unremarkable. No aortic aneurysm. BOWEL: Unremarkable. No obstruction. No gross mural thickening. The rectum is collapsed and poorly evaluated. Overall bowel stomach and bowel evaluation is compromised by lack of oral contrast administered in this exam. APPENDIX: Normal appendix. PERITONEUM: Unremarkable. No free fluid. No free air. LYMPH NODES: Unremarkable. No enlarged lymph nodes. BLADDER: Unremarkable. REPRODUCTIVE: Prominent prostate gland enlargement is seen measuring up to 6.5 cm. BONES: No acute fracture. OTHER FINDINGS: Note is made of resolution of prior right lateral subcutaneous induration at abdominal wall. IMPRESSION: 1. No bowel obstruction, mesenteric edema, ascites or free intrarenal gas is grossly evident. Lack of oral contrast limits evaluation of the large bowel with the rectum collapsed and poorly evaluated. No perirectal reaction grossly evident. 2. Punctate intrarenal calculi are again seen the right kidney and posterior the upper midpole left kidney in the interval. Bilateral renal lucencies are seen which is too small to characterize. No obstructive uropathy bilaterally. 3. Minimal diffuse fatty infiltration liver is appreciated suggesting normalizing hepatic parenchyma in the interval.
[2017-02-16 13:40] VITALS: BP 117/79; PULSE 71
== END 2017-02-16 13:38 | disposition home or self-care (01) ==
LOC: ED 09:10
DX: K62.89 Other specified diseases of anus and rectum (principal); K59.00 Constipation, unspecified; N40.0 Benign prostatic hyperplasia without lower urinary tract symptoms
CPT/HCPCS: 74177; 80053; 81001; 83690; 85025; 96374; 99283; J1885; J7040

== ENCOUNTER 2017-10-09 15:58 | Emergency (ER) | payer SELFPAY ==
[2017-10-09 15:58] VITALS: BMI 31.1
[2017-10-09 16:21] VITALS: RESP 18; TEMP 98.7
[2017-10-09] MEDS ORDERED: Oxycodone/Acetaminophen 5/325 mg Tab PO STA (17:18)
[2017-10-09] MEDS ORDERED: Sodium Chloride 0.9% 1,000 ML IV STA (17:18)
--- NOTE | 2017-10-09 17:38 | ED PDOC ---
Arrival/HPI - General Historian: Patient - History of Present Illness Time/Duration: Prior to Arrival Symptom Onset: Gradual Symptom Course: Unchanged Context: Home <Michael Yuan - Last Filed: 10/09/17 18:51> <GloriaNancyJuan Carlosapoorva - Last Filed: 10/09/17 22:27> - General Chief Complaint: Lower Extremity Problem/Injury Time Seen by Provider: 10/09/17 16:17 - History of Present Illness Narrative History of Present Illness (Text): 10/09/17 19:18 Patient is a 51 M with history of shingles who presents with complaints of right upper thigh pain which began a few days ago. Patient states he decided to come in today because the pain did not subside. Patient also endorsed erythema, tenderness upon palpation, and edema of area. Patient took motrin which relieved swelling as well as tylenol for pain. Denies shortness of breath, chest pain, abdominal pain, nausea, vomiting, diarrhea, nausea, vomiting, diarrhea, fevers, chills. (Michael Yuan) Past Medical History - Provider Review Nursing Documentation Reviewed: Yes - Past History Past History: No Previous - Infectious Disease Hx of Infectious Diseases: None - Tetanus Immunization Tetanus Immunization: Unknown - Past Medical History Past Medical History: No Previous - Cardiac Hx Cardiac Disorders: No - Pulmonary Hx Respiratory Disorders: No - Neurological Hx Neurological Disorder: No - HEENT Hx HEENT Disorder: Yes (glasses) - Renal Hx Renal Disorder: No - Endocrine/Metabolic Hx Endocrine Disorders: No - Hematological/Oncological Hx Blood Disorders: Yes Hx Shingles: Yes (left back "few yrs ago") - Integumentary Hx Dermatological Disorder: No - Musculoskeletal/Rheumatological Hx Musculoskeletal Disorders: No - Gastrointestinal Hx Gastrointestinal Disorders: Yes (constipation take dulcolax) - Genitourinary/Gynecological Hx Genitourinary Disorders: No - Psychiatric Hx Psychophysiologic Disorder: Yes Hx Anxiety: Yes Hx Substance Use: No - Past Surgical History Past Surgical History: No Previous - Anesthesia Hx Anesthesia: No Hx Anesthesia Reactions: No Hx Malignant Hyperthermia: No - Suicidal Assessment Feels Threatened In Home Enviroment: No <Michael Yuan - Last Filed: 10/09/17 18:51> Family/Social History - Physician Review Nursing Documentation Reviewed: Yes Family/Social History: Other (non-contributory) Smoking Status: Never Smoked Hx Alcohol Use: No (rarely) Hx Substance Use: No Hx Substance Use Treatment: No <Michael Yuan - Last Filed: 10/09/17 18:51> Allergies/Home Meds <Michael Yuan - Last Filed: 10/09/17 18:51> <Earl Castro - Last Filed: 10/09/17 22:27> Allergies/Adverse Reactions: Allergies No Known Allergies Allergy (Verified 10/09/17 16:23) Home Medications: Home Meds Medication Instructions Recorded Confirmed Bisacodyl [Ducolax] 2 tab PO DAILY PRN 10/31/16 10/09/17 Review of Systems - Physician Review All systems were reviewed & negative as marked: Yes - Review of Systems Constitutional: Normal. absent: Fatigue, Fevers Eyes: Normal. absent: Vision Changes Respiratory: Normal. absent: SOB, Cough, Wheezing Cardiovascular: absent: Chest Pain, Palpitations Gastrointestinal: absent: Abdominal Pain, Diarrhea, Vomiting Genitourinary Male: absent: Dysuria Skin: Other (pain on right upper thigh) Neurological: absent: Headache, Dizziness Endocrine: Normal Hemo/Lymphatic: Normal Psychiatric: absent: Anxiety <Michael Yuan - Last Filed: 10/09/17 18:51> Physical Exam Vital Signs Reviewed: Yes Temperature: Afebrile Blood Pressure: Normal Pulse: Regular Respiratory Rate: Normal Appearance: Positive for: Well-Appearing, Non-Toxic, Comfortable Pain Distress: None Mental Status: Positive for: Alert and Oriented X 3 - Systems Exam Head: Present: Atraumatic, Normocephalic Pupils: Present: PERRL Extroacular Muscles: Present: EOMI Conjunctiva: Present: Normal Mouth: Present: Moist Mucous Membranes Respiratory/Chest: Present: Clear to Auscultation, Good Air Exchange. No: Wheezes, Rhonchi Cardiovascular: Present: Regular Rate and Rhythm, Normal S1, S2 Abdomen: Present: Normal Bowel Sounds. No: Tenderness, Distention Upper Extremity: Present: Normal Inspection. No: Edema Lower Extremity: Present: Normal Inspection. No: Edema Neurological: Present: GCS=15, CN II-XII Intact, Speech Normal Skin: Present: Warm, Normal Color Psychiatric: Present: Alert, Oriented x 3, Normal Insight, Normal Concentration <Michael Yuan - Last Filed: 10/09/17 18:51> Vital Signs Temp Pulse Resp BP Pulse Ox 10/09/17 19:08 72 18 132/79 98 10/09/17 16:16 98.7 F 69 18 120/74 97 Medical Decision Making Re-evaluation Time: 19:12 Reassessment Condition: Re-examined - Lab Interpretations I have reviewed the lab results: Yes Interpretation: All labs normal - RAD Interpretation Director Audience Marketing: Radiologist <Michael Yuan - Last Filed: 10/09/17 18:51> <Earl Castro - Last Filed: 10/09/17 22:27> ED Course and Treatment: 10/09/17 19:09 Differential diagnosis included DVT, superficial thrombophlebitis, cellulitis , Venous duplex negative for DVT Labs were ordered which revealed no abnormalities With DVT being ruled out, will give motrin for treatment of superficial thrombophlebitis, as well as keflex for cellulitis Patient educated on taking antiobiotics as well as motrin. And to start with warm compresses on affected area. (Michael Yuan) - Lab Interpretations Lab Results: 10/09/17 17:20 10/09/17 17:20 Lab Results 10/09/17 17:20: Sodium 145, Potassium 4.4, Chloride 104, Carbon Dioxide 28, Anion Gap 17, BUN 18, Creatinine 1.0, Est GFR ( Amer) > 60, Est GFR (Non- Af Amer) > 60, Random Glucose 86, Calcium 10.0, Total Bilirubin 0.8, AST 35, ALT 17, Alkaline Phosphatase 65, Total Protein 8.7 H, Albumin 4.6, Globulin 4.1 , Albumin/Globulin Ratio 1.1 10/09/17 17:20: PT 12.2, INR 1.07, APTT 31.7 10/09/17 17:20: WBC 7.2 D, RBC 5.38, Hgb 16.2, Hct 46.1, MCV 85.7, MCH 30.1, MCHC 35.1, RDW 13.9, Plt Count 185, MPV 10.4, Gran % 40.5 L, Lymph % (Auto) 46.9 H, [place] % (Auto) 6.8 H, Eos % (Auto) 5.4 H, Baso % (Auto) 0.4, Gran # 2.90 , Lymph # (Auto) 3.4, [place] # (Auto) 0.5, Eos # (Auto) 0.4, Baso # (Auto) 0.03, ESR 4 - RAD Interpretation Radiology Orders: 10/09/17 17:17 DUPLEX LOWER EXTRM VEIN RIGHT [US] Stat - Medication Orders Current Medication Orders: Discontinued Medications Sodium Chloride (Sodium Chloride 0.9%) 1,000 mls @ 999 mls/hr IV .Q1H1M STA Stop: 10/09/17 18:18 Last Admin: 10/09/17 17:36 Dose: 999 mls/hr eMAR Start Stop Document 10/09/17 17:36 EWO (Rec: 10/09/17 17:36 [facility] [id number]) Intravenous Solution Start Date 10/09/17 Start Time 17:36 End Date 10/09/17 End time 18:36 Total Infusion Time 60 Oxycodone/Acetaminophen (Percocet 5/325 Mg Tab) 1 tab PO STAT STA Stop: 10/09/17 17:19 Last Admin: 10/09/17 17:36 Dose: 1 tab MAR Pain Assessment Document 10/09/17 17:36 EWO (Rec: 10/09/17 17:36 EW [id number]) Pain Reassessment Is this a pain reassessment? No - PA / [employer] / Resident Statement /DO has reviewed & agrees with the documentation as recorded. <Earl Castro - Last Filed: 10/09/17 22:27> Disposition/Present on Arrival - Present on Arrival Any Indicators Present on Arrival: No History of DVT/PE: No History of Uncontrolled Diabetes: No Urinary Catheter: No History of Decub. Ulcer: No History Surgical Site Infection Following: None - Disposition Have Diagnosis and Disposition been Completed?: Yes Disposition Time: 18:54 Patient Plan: Discharge <Michael Yuan - Last Filed: 10/09/17 18:51> - Present on Arrival Urinary Catheter: No History of Decub. Ulcer: No - Disposition Have Diagnosis and Disposition been Completed?: Yes <Earl Castro - Last Filed: 10/09/17 22:27> - Disposition Diagnosis: Superficial thrombophlebitis of right leg Disposition: HOME/ ROUTINE Condition: GOOD Discharge Instructions (ExitCare): Phlebitis (DC), Superficial Phlebitis Additional Instructions: Mr. May, thank you for letting us take care of you today. Your provider was Dr. Castro. You were treated for superficial thrombophlebitis. The emergency medical care you received today was directed at your acute symptoms. If you were prescribed any medication, please fill it and take as directed. It may take several days for your symptoms to resolve. Return to the Emergency Department if your symptoms worsen, do not improve, or if you have any other problems. Please contact your doctor or call one of the physicians/clinics you have been referred to that are listed on the Patient Visit Information form that is included in your discharge packet. Bring any paperwork you were given at discharge with you along with any medications you are taking to your follow up visit. Our treatment cannot replace ongoing medical care by a primary care provider (PCP) outside of the emergency department. Thank you for allowing the [facility] team to be part of your care today. If you had an X-Ray or CT scan: A Radiologist will review the ED reading if any change in treatment is needed we will contact you. If you had a blood, urine, or wound culture: It will take several days for the results, if any change in treatment is needed we will contact you. If you had an STI test: It will take 48 hours for the results. Please call after 1 week if you have not heard back. Prescriptions: Cephalexin [Keflex] 500 mg PO QID #20 capsule Ibuprofen [Motrin Tab] 800 mg PO Q8H #30 tab Referrals: Lizbeth Mcadams MD [Primary Care Provider] - Follow up with primary Forms: [employer] (Belizean)
[2017-10-09 17:47] LABS: BASO # 0.03 K/mm3 (0.0-2.0); BASO % 0.4 % (0.0-3.0); EOS # 0.4 (0.0-0.7); EOS % 5.4 % (1.5-5.0); GRAN # 2.9 (1.4-6.5); GRAN % 40.5 % (50.0-68.0); HEMOGLOBIN 16.2 g/dL (14.0-18.0); LYMPH # 3.4 (1.2-3.4); LYMPH % 46.9 % (22.0-35.0); MEAN CELL VOLUME 85.7 fl (80.0-105.0); MEAN CORPUSCULAR HEMOGLOBIN 30.1 pg (25.0-35.0); MEAN CORPUSCULAR HGB CONC 35.1 g/dl (31.0-37.0); MEAN PLATELET VOLUME 10.4 fl (7.0-11.0); MONO # 0.5 (0.1-0.6); MONO % 6.8 % (1.0-6.0); RBC 5.38 10^6/uL (3.5-6.1); RED CELL DISTRIBUTION WIDTH 13.9 % (11.5-14.5); WHITE BLOOD COUNT 7.2 10^3/ul (4.5-11.0)
[2017-10-09 17:55] LABS: INR 1.07 (0.93-1.08); PARTIAL THROMBOPLASTIN TIME 31.7 Seconds (25.1-36.5); PROTHROMBIN TIME 12.2 SECONDS (9.4-12.5)
[2017-10-09 18:14] LABS: GFR AFRICAN-AMERICAN > 60; GFR NON-AFRICAN AMERICAN > 60
[2017-10-09 18:15] LABS: ALB/GLOB RATIO 1.1 (1.1-1.8); ALBUMIN 4.6 g/dL (3.0-4.8); ALT/SGPT 17 U/L (7-56); AST/SGOT 35 U/L (17-59); BLOOD UREA NITROGEN 18 mg/dL (7-21)
[2017-10-09 19:09] VITALS: BP 132/79; PULSE 72; O2SAT 98
--- NOTE | 2017-10-09 19:20 | US ---
PROCEDURE: Right lower extremity venous US HISTORY: Leg pain and swelling. Evaluate for DVT. PHYSICIAN(S): Rudi Mallory M.D. TECHNIQUE: Duplex sonography and color-flow Doppler with graded compression were used to evaluate the deep venous system of the right lower extremity. FINDINGS: The visualized deep venous system of the right lower extremity is sonographically normal and compressible. Normal waveforms and augmentation are seen. There is no sonographic evidence for deep venous thrombosis in the visualized segments of the right lower extremity. IMPRESSION: 1. No sonographic evidence for deep venous thrombosis in the visualized segments of the right lower extremity.
== END 2017-10-09 19:08 | disposition home or self-care (01) ==
LOC: ED 15:58
DX: I80.01 Phlebitis and thrombophlebitis of superficial vessels of right lower extremity (principal)
CPT/HCPCS: 80053; 85025; 85610; 85651; 85730; 87040; 93971; 96360; 99283; J7040

== ENCOUNTER 2017-11-23 16:09 | Emergency (ER) | payer SELFPAY ==
[2017-11-23 16:14] VITALS: RESP 18; TEMP 99.2; BMI 30.5
[2017-11-23 18:37] LABS: BASO # 0.01 K/mm3 (0.0-2.0); BASO % 0.1 % (0.0-3.0); EOS # 0.2 (0.0-0.7); EOS % 2.6 % (1.5-5.0); GRAN # 3.65 (1.4-6.5); GRAN % 52.8 % (50.0-68.0); HEMOGLOBIN 14.4 g/dL (14.0-18.0); LYMPH # 2.7 (1.2-3.4); LYMPH % 38.9 % (22.0-35.0); MEAN CELL VOLUME 85.7 fl (80.0-105.0); MEAN CORPUSCULAR HEMOGLOBIN 29.4 pg (25.0-35.0); MEAN CORPUSCULAR HGB CONC 34.4 g/dl (31.0-37.0); MEAN PLATELET VOLUME 10.2 fl (7.0-11.0); MONO # 0.4 (0.1-0.6); MONO % 5.6 % (1.0-6.0); RBC 4.89 10^6/uL (3.5-6.1); RED CELL DISTRIBUTION WIDTH 13.7 % (11.5-14.5); WHITE BLOOD COUNT 6.9 10^3/ul (4.5-11.0)
[2017-11-23 18:42] LABS: ALBUMIN 3.6 g/dL (3.0-4.8); ALT/SGPT 21 U/L (7-56); AST/SGOT 27 U/L (17-59); BLOOD UREA NITROGEN 15 mg/dL (7-21); CALCIUM 9.1 mg/dL (8.4-10.5); GFR AFRICAN-AMERICAN > 60; GFR NON-AFRICAN AMERICAN > 60
--- NOTE | 2017-11-23 18:55 | ED PDOC ---
Arrival/HPI - General Chief Complaint: Lower Extremity Problem/Injury Time Seen by Provider: 11/23/17 17:58 Historian: Patient - History of Present Illness Narrative History of Present Illness (Text): 11/23/17 18:51 52-year-old male presents today with bilateral leg swelling right greater than the left. Patient states he's had swelling to both legs for the past 3 days. Patient states the swelling to the left leg seemed to have resolved but the swelling in the right leg remains. Patient states he was seen at another hospital and had ultrasound of the leg and was told there was no blood clot. Patient denies fevers or chills. Denies any trauma or injury. pt has not taken any medications for pain. denies abdominal pain. no urinary symptoms. no cp or sob. no other complaints. Past Medical History - Provider Review Nursing Documentation Reviewed: Yes - Travel History Have you recently traveled outside [place] w/in the past 3 mons?: No - Past History Past History: No Previous - Infectious Disease Hx of Infectious Diseases: None - Tetanus Immunization Tetanus Immunization: Unknown - Past Medical History Past Medical History: No Previous - Cardiac Hx Cardiac Disorders: No - Pulmonary Hx Respiratory Disorders: No - Neurological Hx Neurological Disorder: No - HEENT Hx HEENT Disorder: Yes (glasses) - Renal Hx Renal Disorder: No - Endocrine/Metabolic Hx Endocrine Disorders: No - Hematological/Oncological Hx Blood Disorders: Yes Hx Shingles: Yes (left back "few yrs ago") - Integumentary Hx Dermatological Disorder: No - Musculoskeletal/Rheumatological Hx Musculoskeletal Disorders: No - Gastrointestinal Hx Gastrointestinal Disorders: Yes (constipation take dulcolax) - Genitourinary/Gynecological Hx Genitourinary Disorders: No - Psychiatric Hx Psychophysiologic Disorder: Yes Hx Anxiety: Yes Hx Substance Use: No - Past Surgical History Past Surgical History: No Previous - Anesthesia Hx Anesthesia: No Hx Anesthesia Reactions: No Hx Malignant Hyperthermia: No - Suicidal Assessment Feels Threatened In Home Enviroment: No Family/Social History - Physician Review Nursing Documentation Reviewed: Yes Family/Social History: Unknown Family HX Smoking Status: Never Smoked Hx Alcohol Use: No (rarely) Hx Substance Use: No Hx Substance Use Treatment: No Allergies/Home Meds Allergies/Adverse Reactions: Allergies No Known Allergies Allergy (Verified 10/09/17 16:23) Home Medications: Home Meds Medication Instructions Recorded Confirmed Bisacodyl [Ducolax] 2 tab PO DAILY PRN 10/31/16 10/09/17 Review of Systems - Review of Systems Constitutional: absent: Fatigue, Fevers Respiratory: absent: SOB, Cough Cardiovascular: absent: Chest Pain, Palpitations Gastrointestinal: absent: Abdominal Pain, Nausea, Vomiting Genitourinary Male: absent: Dysuria, Frequency, Hematuria Musculoskeletal: Arthralgias. absent: Back Pain, Neck Pain Skin: absent: Rash, Pruritis Neurological: absent: Headache, Dizziness Psychiatric: absent: Anxiety, Depression, Suicidal Ideation Physical Exam Vital Signs Reviewed: Yes Vital Signs Temp Pulse Resp BP Pulse Ox 11/23/17 16:13 99.2 F 76 18 134/83 98 Temperature: Afebrile Blood Pressure: Normal Pulse: Regular Respiratory Rate: Normal Appearance: Positive for: Well-Appearing, Non-Toxic, Comfortable Pain Distress: None Mental Status: Positive for: Alert and Oriented X 3 - Systems Exam Head: Present: Atraumatic Mouth: Present: Moist Mucous Membranes Neck: Present: Normal Range of Motion Respiratory/Chest: Present: Clear to Auscultation, Good Air Exchange. No: Respiratory Distress, Accessory Muscle Use Cardiovascular: Present: Regular Rate and Rhythm, Normal S1, S2. No: Murmurs Abdomen: No: Tenderness, Distention, Peritoneal Signs Back: Present: Normal Inspection Upper Extremity: Present: Normal ROM Lower Extremity: Present: CALF TENDERNESS, NORMAL PULSES, Normal ROM, Tenderness (right leg; + edema noted to lower leg; + calf tenderness; + ttp over right ankle; no erythema; sensation and distal pulses intact; cap refill < 2. ), Swelling, Neurovascularly Intact, Capillary Refill < 2 s, Other (left leg ; no edema, no erythema, no ecchymosis. ). No: Erythema Neurological: Present: GCS=15, Speech Normal Skin: Present: Warm, Dry, Normal Color. No: Rashes Psychiatric: Present: Alert, Oriented x 3 Medical Decision Making ED Course and Treatment: 11/23/17 18:55 Patient is nontoxic well-appearing in no distress with stable vital signs lungs are clear to auscultation bilaterally. Venous duplex of the lower extremities; no DVT verbal report by line service technician xray of right ankle; no fracture CBC: wnl CMP: wnl BNP: wnl Urinalysis: wnl Patient reassessment; patient is nontoxic well-appearing in no distress with stable vital signs motrin given PO. I discussed the results with patient about followup with a primary care physician within the next 2 days as well as the orthopedist. I've advised return if symptoms worsen persist or if there's concerning symptoms develop. Patient verbalizes understanding of discharge instructions and need for immediate followup. all aspects of this case were discussed the attending of record. Impression: Leg pain, leg swelling Followup with the primary care physician within the next 2 days rest, elevation Follow up with the orthopedist within the next 2 days Return if symptoms worsen persist or if new symptoms develop; high fevers, increasing pain, redness, worsening swelling or if any other concerning symptoms develop. - Lab Interpretations Lab Results: 11/23/17 18:28 11/23/17 18:28 Lab Results 11/23/17 18:35: Urine Color Yellow, Urine Appearance Clear, Urine pH 6.0, Ur Specific [place] >= 1.030, Urine Protein Negative, Urine Glucose (UA) Negative, Urine Ketones Negative, Urine Blood Negative, Urine Nitrate Negative, Urine Bilirubin Negative, Urine Urobilinogen 0.2, Ur Leukocyte Esterase Negative 11/23/17 18:28: WBC 6.9, RBC 4.89, Hgb 14.4, Hct 41.9 L, MCV 85.7, MCH 29.4, MCHC 34.4, RDW 13.7, Plt Count 190, MPV 10.2, Gran % 52.8, Lymph % (Auto) 38.9 H , [place] % (Auto) 5.6, Eos % (Auto) 2.6, Baso % (Auto) 0.1, Gran # 3.65, Lymph # ( Auto) 2.7, [place] # (Auto) 0.4, Eos # (Auto) 0.2, Baso # (Auto) 0.01 11/23/17 18:28: Sodium 144, Potassium 4.4, Chloride 107, Carbon Dioxide 30, Anion Gap 12, BUN 15, Creatinine 0.9, Est GFR ( Amer) > 60, Est GFR (Non- Af Amer) > 60, Random Glucose 102, Calcium 9.1, Total Bilirubin 0.8, AST 27, ALT 21, Alkaline Phosphatase 57, NT-Pro-B Natriuret Pep 71.0, Total Protein 7.2 , Albumin 3.6, Globulin 3.6, Albumin/Globulin Ratio 1.0 L - RAD Interpretation Radiology Orders: 11/23/17 18:03 DUPLEX LOWER EXTRM VEIN BILAT [US] Stat 11/23/17 18:21 ANKLE RIGHT 3 VIEWS ROUTINE [RAD] Stat Disposition/Present on Arrival - Present on Arrival Any Indicators Present on Arrival: No History of DVT/PE: No History of Uncontrolled Diabetes: No Urinary Catheter: No History of Decub. Ulcer: No History Surgical Site Infection Following: None - Disposition Have Diagnosis and Disposition been Completed?: Yes Diagnosis: Right leg pain, Leg swelling Disposition: HOME/ ROUTINE Disposition Time: 19:31 Patient Plan: Discharge Patient Problems: Current Active Problems Problem Status Onset Leg swelling Acute Right leg pain Acute Condition: GOOD Discharge Instructions (ExitCare): Dependent Edema (DC) Additional Instructions: Followup with the primary care physician within the next 2 days rest, elevation Follow up with the orthopedist within the next 2 days Return if symptoms worsen persist or if new symptoms develop; high fevers, increasing pain, redness, worsening swelling or if any other concerning symptoms develop. Prescriptions: Ibuprofen [Motrin] 600 mg PO Q6H PRN #20 tab PRN Reason: pain/fever reduction Referrals: Isma Amin III, MD [Medical Doctor] - Follow up with primary Lizbeth Mcadams MD [Primary Care Provider] - Follow up with primary [facility] [Outside] - Follow up with primary [facility] [place]Outside] - Follow up with primary Forms: [employer] (Nauruan), WORK NOTE
[2017-11-23 18:56] LABS: URINE BILIRUBIN NEGATIVE (NEGATIVE); URINE BLOOD NEGATIVE (NEGATIVE); URINE GLUCOSE (UA) NEGATIVE (NEGATIVE); URINE LEUKOCYTE ESTERASE NEGATIVE Leu/uL (NEGATIVE); URINE PROTEIN NEGATIVE mg/dL (<30 mg/dL); URINE UROBILINOGEN 0.2 E.U./dL (<1 E.U./dL)
--- NOTE | 2017-11-23 18:57 | RAD ---
PROCEDURE: Right Ankle Radiographs. HISTORY: leg swelling, no trauma/injury COMPARISON: None FINDINGS: BONES: No acute fracture. JOINTS: Ankle mortise maintained. Talar dome intact SOFT TISSUES: Normal. OTHER FINDINGS: None. IMPRESSION: No demonstrated fracture or dislocation.
[2017-11-23 18:58] LABS: URINE APPEARANCE CLEAR (CLEAR); URINE COLOR YELLOW (YELLOW)
--- NOTE | 2017-11-23 19:31 | US ---
HISTORY: Leg pain and swelling. Evaluate for DVT PHYSICIAN(S): Rudi Mallory MD. TECHNIQUE: Duplex sonography and color-flow Doppler with graded compression were used to evaluate the deep venous systems of both lower extremities. FINDINGS: The visualized deep venous systems of both lower extremities are sonographically normal and compressible. Normal wave forms and augmentation are seen. There is no sonographic evidence for deep venous thrombosis in the visualized segments of both lower extremities. IMPRESSION: No sonographic evidence for deep venous thrombosis in the visualized segments of both lower extremities.
[2017-11-23 19:50] VITALS: BP 151/99; PULSE 70; O2SAT 99
== END 2017-11-23 19:58 | disposition home or self-care (01) ==
LOC: ED 16:09
DX: M79.604 Pain in right leg (principal); M79.89 Other specified soft tissue disorders

== ENCOUNTER 2017-12-13 14:32 | Emergency (ER) | payer SELFPAY ==
[2017-12-13 14:32] VITALS: BMI 30.5
[2017-12-13 15:00] VITALS: RESP 18; TEMP 98.2
--- NOTE | 2017-12-13 15:04 | ED PDOC ---
Arrival/HPI - General Chief Complaint: Lower Extremity Problem/Injury Time Seen by Provider: 12/13/17 14:45 Historian: Patient - History of Present Illness Narrative History of Present Illness (Text): 12/13/17 15:18 A 52 year old male, whose past medical history includes shingles, presents to the emergency department complaining of right ankle swelling. Patient reports was here 2 weeks ago for similar complaint, at that time it was worse. Swelling has gone down since. States he was prescribed a water pill for sweling and anti- inflammatory medication for pain. Patient is requesting to be prescribed a different medication to bring down swelling completely. Patient denies any other complaints. PMD: Dr. Lizbeth Mcadams Past Medical History - Provider Review Nursing Documentation Reviewed: Yes - Past History Past History: No Previous - Infectious Disease Hx of Infectious Diseases: None - Tetanus Immunization Tetanus Immunization: Unknown - Past Medical History Past Medical History: No Previous - Cardiac Hx Cardiac Disorders: No - Pulmonary Hx Respiratory Disorders: No - Neurological Hx Neurological Disorder: No - HEENT Hx HEENT Disorder: Yes (glasses) - Renal Hx Renal Disorder: No - Endocrine/Metabolic Hx Endocrine Disorders: No - Hematological/Oncological Hx Blood Disorders: Yes Hx Shingles: Yes (left back "few yrs ago") - Integumentary Hx Dermatological Disorder: No - Musculoskeletal/Rheumatological Hx Musculoskeletal Disorders: No - Gastrointestinal Hx Gastrointestinal Disorders: Yes (constipation take dulcolax) - Genitourinary/Gynecological Hx Genitourinary Disorders: No - Psychiatric Hx Psychophysiologic Disorder: Yes Hx Anxiety: Yes Hx Substance Use: No - Past Surgical History Past Surgical History: No Previous - Anesthesia Hx Anesthesia: No Hx Anesthesia Reactions: No Hx Malignant Hyperthermia: No - Suicidal Assessment Feels Threatened In Home Enviroment: No Family/Social History - Physician Review Nursing Documentation Reviewed: Yes Family/Social History: No Known Family HX Smoking Status: Never Smoked Hx Alcohol Use: No (rarely) Hx Substance Use: No Hx Substance Use Treatment: No Allergies/Home Meds Allergies/Adverse Reactions: Allergies No Known Allergies Allergy (Verified 12/13/17 15:00) Home Medications: Home Meds Medication Instructions Recorded Confirmed Furosemide [Lasix] 20 mg PO DAILY 12/13/17 12/13/17 Naproxen [Naprosyn] 500 mg PO BID 12/13/17 12/13/17 Review of Systems - Physician Review All systems were reviewed & negative as marked: Yes - Review of Systems Constitutional: absent: Fevers Musculoskeletal: Other (right-ankle swelling) Physical Exam - Physical Exam Narrative Physical Exam (Text): Gen: VS reviewed, alert, well devloped, well nourished, nontoxic, mild distress. ENT: normal pharynx Eye: EOMI, PERRL Neck: no JVD, supple, no adenopathy CV: regular rate, regular rhythm, no rubs, no murmur, no gallops, S1, S2, pulses equal and strong Pulm: no distress, lear to auscultation, no wheeze, no rhonchi, breath sounds equal, no rales Abd: soft, nontender, no guarding, no rebound, no rigidity, normal bowel sounds Ext: trace edema to right lower leg Skin: good color, no rash, no cyanosis Psych: responds appropriately to questions, normal affect Neuro: oriented x 3, CN2-12 intact grossly, motor intact, sensation intact Vital Signs Reviewed: Yes Vital Signs Temp Pulse Resp BP Pulse Ox 12/13/17 15:47 65 12/13/17 15:38 65 18 145/80 99 12/13/17 14:56 98.2 F 64 18 147/81 97 Temperature: Afebrile Blood Pressure: Normal Pulse: Regular Respiratory Rate: Normal Appearance: Positive for: Well-Appearing, Non-Toxic, Comfortable Pain Distress: None Mental Status: Positive for: Alert and Oriented X 3 Medical Decision Making ED Course and Treatment: 12/13/17 15:20 Impression: 52 year old male with right-ankle swelling. Physical exam shows trace edema to right lower leg. Plan: -- Reassess and disposition Prior Visits: Notes and results from previous visits were reviewed. Patient was last seen here in the emergency room on 11/23/2017 for bilateral leg swelling, right greater than left. Patient was discharged home. Progress Notes: 12/13/17 15:24 Patient has been recommended to follow-up with PMD, to take water pill twice daily, and to get a compression stocking to be worn throughout the day, even while working. - Scribe Statement The provider has reviewed the documentation as recorded by the Sharla Dobbs Provider Scribe Provider Scribe Attestation: All medical record entries made by the Scribe were at my direction and personally dictated by me. I have reviewed the chart and agree that the record accurately reflects my personal performance of the history, physical exam, medical decision making, and the department course for this patient. I have also personally directed, reviewed, and agree with the discharge instructions and disposition. Disposition/Present on Arrival - Present on Arrival Any Indicators Present on Arrival: No History of DVT/PE: No History of Uncontrolled Diabetes: No Urinary Catheter: No History of Decub. Ulcer: No History Surgical Site Infection Following: None - Disposition Have Diagnosis and Disposition been Completed?: Yes Diagnosis: Peripheral edema Disposition: HOME/ ROUTINE Disposition Time: 21:52 Condition: GOOD Discharge Instructions (ExitCare): Dependent Edema (DC) Print Language: [place] Additional Instructions: You must follow up with a primary care doctor. MERARY KATE, thank you for letting us take care of you today. Your provider was Dr. Cheko Artis and you were treated for peripheral edema. The emergency medical care you received today was directed at your acute symptoms. If you were prescribed any medication, please fill it and take as directed. It may take several days for your symptoms to resolve. Return to the Emergency Department if your symptoms worsen, do not improve, or if you have any other problems. Please contact your doctor or call one of the physicians/clinics you have been referred to that are listed on the Patient Visit Information form that is included in your discharge packet. Bring any paperwork you were given at discharge with you along with any medications you are taking to your follow up visit. Our treatment cannot replace ongoing medical care by a primary care provider outside of the emergency department. Thank you for allowing the [facility] team to be part of your care today. If you had an X-Ray or CT scan: A Radiologist will review the ED reading if any change in treatment is needed we will contact you. If you had a blood, urine, or wound culture: It will take several days for the results, if any change in treatment is needed we will contact you. If you had an STI test: It will take 48 hours for the results. Please call after 1 week if you have not heard back. Prescriptions: Furosemide [Lasix] 40 mg PO DAILY 30 Days #30 tab Forms: [employer] ([place]), WORK NOTE
[2017-12-13 15:46] VITALS: BP 145/80; PULSE 65; O2SAT 99
== END 2017-12-13 15:36 | disposition home or self-care (01) ==
LOC: ED 14:32
DX: R60.0 Localized edema (principal)